=== PATIENT | female | born 1960 | race Caucasian/White ===

== ENCOUNTER 2022-02-25 09:30 | Outpatient (RCR) | payer OTHER, SELFPAY ==
--- NOTE | 2022-02-06 17:27 | HP.PTEVAL ---
Patient's Visit Information FILIPPO MURILLO is a 61 year old F referred to Physical Therapy by HOANG DHILLON with a diagnosis of Lumbar spondylosis. Date of Evaluation: 02/06/22 Physical Therapist: JOAQUIN Ware - Visit Plan Frequency: 1x/Week Duration: 2 Weeks Plan: 1-2 visits for neutral spine core stability. (May want to try ball under feet crunch for lower abs with neutral spine). HEP: PT, PT with blue band knee fall outs, bug with green [place] ball with feet flat on the floor. - Subjective Pt is a healthy person and does 2 miles a day she walks with 3 incline. She had been doing that for awhile and also lay down on back with knees to chest and out into extension. On a friday she did her 2 miles and did her exercises and then she walked 3 miles with her neighbor and then she went arrowhead hunting with big boots and big mud and looking down and did that for 2.5-3 hours. On Friday she started to have back pain and went on whole week and weekend and having spasms that would knock her to have to hold onto something. She went to a chiropractor (1.5 weeks later). She felt really good. By that next Sat moring she could not walk or lay and had to go to ER with spasms in her back. They gave her medicine and a CATSCAN. She was sent home and was no better and called the ER again. They then gave her something stronger and still not better Friday and prescribed another pain med. She got into a back Dr with steroids and had to call off work. The steroids and pain meds all helped. The back Dr. did a back x-ray. No leg symptoms. - Pain back pain Pain Intensity (Out of 10): 0 - Objective patellar DTR's 2+/3. Trunk AROM: flex 100%, EXT 50%, SB B 75%, Rot B 75%. LE MMT: B hip flex 4/5, B knee ext 4/5, B knee flex 4/5, B hip abd 4/5,. Good HS length. Pt has increased Quad tightness B. Pt had good understanding of PT. Pt could not do 90/90 legs and PT without pulling knees to chest - Balance/Special Test Scores Oswestry Low Back Score: 0 - Goals Goal 1:: I HEP. Goal Time Frame: 2-4 Weeks Goal 2:: No pain with HEP or return to walking Goal Time Frame: 2-4 Weeks Goal 3:: Sit with upright posture during treatment sessions Goal Time Frame: 2-4 Weeks - Rehabilitation Potential Rehabilitation Potential: Good - Anticipated Interventions Patient/Client Instruction: Educate patient on: Condition, Plan of Care For the Purpose of:: To decrease pain, To increase ROM, To improve nutrient delivery to tissue, To improve muscle performance and motor function, To improve ability to perform ADL's, To increase tolerance to activity/condition/position, To improve performance and independence with ADL's, To decrease level of supervision to perform tasks, To improve ability of physical actions for home/community/work/leisure Therapeutic Exercise to Include: Strength training For the Purpose of:: To decrease pain, To increase ROM, To improve nutrient delivery to tissue, To improve muscle performance and motor function, To improve ability to perform ADL's, To improve ability of physical actions for home/community/work/leisure, To improve health of tissue Thank you for the opportunity to evaluate your patient. For Medicare and Medicare HMO plans, please review the plan of care and approve it. It will need to be FAXED BACK to us at [phone] for Medicare purposes. For Medicare only, by signing this I certify the plan of care. Please let me know if there are questions or concerns regarding this plan of care. Physician Signature: Date:
--- NOTE | 2022-05-07 08:25 | HP.PTDCSUM_ITS ---
It has been my pleasure to treat FILIPPO MURILLO referred by HOANG DHILLON, with the diagnosis of Lumbar spondylosis for a total of 2 visit(s). Discharge Date: 05/07/22 Please see the following information for a summary of their discharge status. Subjective: Pt has not done the ball work cause she lost her paper. Pt reports no back pain today and no pain at all. back pain Pain Intensity (Out of 10): 1 % Improvement: 100 Objective/Function: Pt has full understanding of HEP... still needs some tactile cues and verbal cues for good L-spine posture but corrects on command. Pt feels comfortable with HEP Goal 1:: I HEP. Goal Progress: Goal Met Goal 2:: No pain with HEP or return to walking Goal Progress: Goal Met Goal 3:: Sit with upright posture during treatment sessions Goal Progress: Goal Met Plan: Pt will call in 2 weeks if needs to schedule. (Pt did not call in and will be D/C'd at this time 05-07-22). 1-2 visits for neutral spine core stability. (May want to try ball under feet crunch for lower abs with neutral spine). HEP: PT, PT with blue band knee fall outs, bug with green [place] ball with feet flat on the floor. Discharge Comments: DC PT to HEP If there are questions or concerns regarding this patient's physical therapy, please feel free to call me at [phone]. Thank you for the referral of this patient. Sincerely, Shaunna Ortega, MPT Balance/Gait/Functional tests - Balance/Special Test Scores Oswestry Low Back Score: 0
== END 2022-02-25 19:00 | disposition home or self-care (01) ==
LOC: PT 09:30
DX: M47.816 Spondylosis without myelopathy or radiculopathy, lumbar region (principal)
CPT/HCPCS: 97110; 97161